=== PATIENT | male | born 1960 | race Caucasian/White ===

== ENCOUNTER 2018-08-18 10:03 | Outpatient (CLI) | payer OTHER ==
--- NOTE | 2018-08-18 12:18 | CT ---
CT ABDOMEN NONCONTRAST CT PELVIS NONCONTRAST: (urolithiasis protocol) DATE: 08/18/2018 TIME: 10:32 a.m. HISTORY: A 57-year-old male with N13.2, ureteral stone with hydronephrosis. Intermittent left flank christy n. COMPARISON: 08/07/2018 TECHNIQUE: IV injection of iodinated contrast media: none Oral contrast media: none FINDINGS: Other than for urolithiasis, the lack of IV and oral contrast limits the evaluation. The approximately 0.4 x 0.3 x 0.2 cm calculus remains lodged in the distal left ureter, less than 1 c m proximal to the left UVJ. There is mild dilation of the left distal ureter. However, the previous ly demonstrates mild dilation of the left renal collecting system has almost resolved. There is curr ently only minimal prominence of the left renal collecting system. Again noted are the two or three punctate calculi in the left renal upper and mid pole, approximately 0.1 cm in size each. There is n o calculus identified in the contralateral right kidney. No right hydronephrosis. IVC filter. With in the limitations of a noncontrast scan, no obvious pathology identified involving the urinary bladd er, the appendix, the abdominal aorta, the right kidney, the pancreas, the adrenals, the liver, or th e spleen. The lung bases are grossly clear. No ascites or pneumoperitoneum. Dynamic compression sc rew in right proximal femur. IMPRESSION: 1. No significant interval change in the position of the approximately 3 or 4 mm calculus in the dis brandi left ureter, very close to the ureterovesical junction. 2. The previously demonstrated mild left hydronephrosis has improved, almost resolved. 3. Mild left nephrolithiasis, consisting of a few punctate 1 mm left renal calculi. 4. Inferior vena cava filter. SANDRA Anderson POS: [facility]
== END 2018-08-18 10:04 | disposition home or self-care (01) ==
LOC: CT 10:03
PROVIDERS: ATTEND Urology
DX: N13.2 Hydronephrosis with renal and ureteral calculous obstruction (principal)
CPT/HCPCS: 74176

== ENCOUNTER 2018-09-21 11:02 | Outpatient (CLI) | payer OTHER ==
[2018-09-21 11:46] LABS: Hemoglobin 15.2 g/dL (14.0-18.0); Mean Corpuscular HGB CONC 34.7 g/dL (32.0-36.0); Mean Corpuscular Hemoglobin 31.5 pg (27.0-31.0); Mean Corpuscular Volume 90.7 fL (78.0-98.0); Platelet Count 218 thou/uL (130-400); RBC Distribution Width 12.4 % (11.5-14.5); Red Blood Cell (RBC) Count 4.83 mill/uL (4.70-6.10); White Blood Cell (WBC) Count 6.4 thou/uL (4.8-10.8)
[2018-09-21 11:51] LABS: Bilirubin Negative (Negative); Blood, Urine Negative (Negative); Clarity CLEAR (Clear); Glucose, Urine (Dipstick) Negative (Negative); Leukocyte Negative (Negative); Nitrite Negative (Negative); Protein, Urine (Dipstick) Negative (Neg-Trace); Specific Gravity, Urine 1.002 (1.002-1.036); Urobilinogen 0.2 mg/dL (0.2-1.0); pH, Urine 6.5 (5.0-9.0)
[2018-09-21 11:53] LABS: Bacteria/HPF None Seen HPF (None Seen); Hyaline Casts/LPF 0-3 HYALINE CAST LPF (0-3 Hyaline); RBC/HPF 0-3 HPF (0-3); Squamous Epithelial None Seen HPF (0-3); WBC/HPF None Seen HPF (0-3)
[2018-09-21 11:54] LABS: INR-International Normal Ratio 0.9; PTT 27.1 SEC (22.9-36.1); Prothrombin Time 12.5 SEC (12.0-14.7)
[2018-09-21 12:33] LABS: Anion Gap 14 mmol/L (10-20); BUN (Urea Nitrogen) 17 mg/dL (8.4-25.7); Calc. Creatinine Clearance 0 mL/min (70-130); Calcium 9.8 mg/dL (7.8-10.44); Carbon Dioxide 23 mmol/L (22-29); Chloride 106 mmol/L (98-107); Estimated GFR-MDRD Greater than 90; Glucose 110 mg/dL (70-105); Potassium 3.9 mmol/L (3.5-5.1); Sodium 139 mmol/L (136-145)
== END 2018-09-21 11:03 | disposition home or self-care (01) ==
LOC: LABBT 11:02
PROVIDERS: ATTEND Urology
DX: Z01.818 Encounter for other preprocedural examination (principal); N13.2 Hydronephrosis with renal and ureteral calculous obstruction; N28.1 Cyst of kidney, acquired
CPT/HCPCS: 80048; 81001; 85027; 85610; 85730; 87086; 93005; 93010

== ENCOUNTER 2018-09-24 06:58 | Day surgery (SDC) | payer OTHER ==
[2018-09-21 11:29] VITALS: BMI 27.9
[2018-09-24] MEDS ORDERED: Levofloxacin 500 mg/D5W 100 ml Premix Bag ONE (07:48)
[2018-09-24] MEDS ORDERED: Fentanyl 100 MCG/2 ML VIAL ONE ×2 (09:30→11:57)
[2018-09-24] MEDS ORDERED: Iothalamate Meglumine 60% 50 ML VIAL FS ONE (09:31)
[2018-09-24] MEDS ORDERED: Midazolam HCl 2 mg/2 ml Vial ONE (09:51)
[2018-09-24] MEDS ORDERED: Phenazopyridine HCl 97.5 MG TABLET ONE ×2 (11:26)
[2018-09-24] MEDS ORDERED: HYDROcodone/Acetaminophen 5/325 mg Tablet ONE (13:24)
[2018-09-24] MEDS ORDERED: Ondansetron PF 4 MG/2 ML Vial ONE (15:20)
[2018-09-24] MEDS ORDERED: PROPOFOL 200 MG/20 ML VIAL ONE (15:20)
[2018-09-24] MEDS ORDERED: Lidocaine 1% PF 5 ML VIAL ONE (15:20)
[2018-09-24] MEDS ORDERED: PHENYLEPHRINE-NS 100 MCG/ML 10 ML SYRINGE ONE (15:20)
--- NOTE | 2018-09-24 17:24 | OP ---
DATE OF PROCEDURE: 09/24/2018 SERVICE: Urology. PREOPERATIVE DIAGNOSIS: Left ureteral stone. POSTOPERATIVE DIAGNOSIS: Left ureteral stone. PROCEDURES PERFORMED: Left ureteroscopy, laser lithotripsy, basket extraction of stone, and placement of a 6 x 26 double-J stent with a string attached. INDICATION FOR PROCEDURE: Mr. Ren is a 57-year-old white male with history of left flank pain. He was diagnosed in August with a left ureteral stone at the ureterovesical junction. Despite Flomax and pain medication, the patient was unable to pass the stone and he is now presenting for definitive stone management. Risks and benefits have been discussed, and he has agreed to proceed forward. DESCRIPTION OF PROCEDURE: After identification of armband and verification of consent, the patient was brought back to the operating room. He underwent general anesthesia with LMA. He was then placed in dorsal lithotomy position and prepped and draped in usual sterile fashion. After appropriate time-out, a lubricated 22-Ukrainian rigid cystoscope was introduced per urethra into the bladder. The bladder was normal, and the prostate was not very obstructive. Attention was turned to the left ureteral orifice, which was cannulated with a 0.035 Sensor wire up to the level of renal pelvis. The cystoscope was then removed after emptying the bladder with leaving the Sensor wire in place as a safety wire, which was affixed to the drapes with hemostat. A semi-rigid ureteroscope was then passed alongside the Sensor wire into the urethra and into bladder and using the assistance of a Bentson wire, we were able to introduce the ureteroscope into the distal ureter, which was somewhat narrowed approximately 1 cm to 2 cm up, the stone was encountered. The Bentson wire was removed and switched out for a 365 micron laser fiber, which was used to fragment the stone to approximately 3 pieces. A 1.9-Ukrainian ZeroTip Nitinol basket was then used to grasp the pieces and bring them out for stone analysis. Final ureteroscopy did not demonstrate any additional stones. The ureteroscope was then withdrawn, and the cystoscope was back-loaded over the Sensor wire back in the bladder. A 6 x 26 double-J stent with a string attached was advanced over the Sensor wire up to the level of the renal pelvis. The wire was then removed leaving a good curl in the renal pelvis and good curl in the bladder. The bladder was then emptied, and the cystoscope was removed. The string was attached to the patient's penis using a small Tegaderm. The patient was then taken out of lithotomy, awakened, and taken to PACU for recovery in stable condition. COMPLICATIONS: None. ESTIMATED BLOOD LOSS: Minimal. RETAINED TUBES AND DRAINS: A 6 x 26 double-J stent on the left. SPECIMEN: Stone for stone analysis. DISPOSITION: The patient will be discharged home. He will be instructed to remove his stent on Friday. He will follow up with me in the following week. Job ID: [id number]
[2018-09-29 10:15] LABS: CA Oxalate Monohydrate 97 % (.); Color Brown (.)
== END 2018-09-24 14:15 | disposition home or self-care (01) ==
LOC: SDC 06:58
PROVIDERS: ATTEND Urology
PROC: 0T778DZ Dilation of Left Ureter with Intraluminal Device, Via Natural or Artificial Opening Endoscopic (ICD-10-PCS; principal; 2018-09-24)
PROC: 0TF78ZZ Fragmentation in Left Ureter, Via Natural or Artificial Opening Endoscopic (ICD-10-PCS; principal; 2018-09-24)
DX: N13.2 Hydronephrosis with renal and ureteral calculous obstruction (principal); N28.1 Cyst of kidney, acquired; I10 Essential (primary) hypertension; F41.9 Anxiety disorder, unspecified; Z88.8 Allergy status to other drugs, medicaments and biological substances; Z88.3 Allergy status to other anti-infective agents; Z79.899 Other long term (current) drug therapy
CPT/HCPCS: 76000; 82365; 88300; 96374; C1769; J1956; J2001; J2250; J2405; J2704; J3010; Q9961

== ENCOUNTER 2019-10-22 11:50 | Outpatient (CLI) | payer OTHER ==
[2019-10-22] MEDS ORDERED: Iopamidol 370 76% 100 ML VIAL ONE (12:02)
--- NOTE | 2019-10-22 13:16 | CT ---
CT of the abdomen with and without contrast INDICATION: Follow-up abnormality seen on recent abdominal ultrasound dated October 04, 2019. History of a complex cyst within the left kidney. COMPARISON: CT of the abdomen and pelvis dated 08/18/[address] the abdomen dated 07/16/2018 and TECHNIQUE: Axial noncontrast CT the abdomen, nephrographic phase axial CT the abdomen and delayed pha se axial CT of the abdomen were obtained. Sagittal and coronal reformats were constructed from the delayed phase imaging series. FINDINGS: Kidneys: There is are two separate 2 mm nonobstructing calculi involving inferior pole the left kidne y. No hydronephrosis is demonstrated. The mildly complex cyst involving the posterior aspect of the left mid kidney is stable to slightly smaller in size measuring 1.8 cm with no internal enhancement. Other tiny subcentimeter cysts are again seen within the right and left kidney. No solid renal lesion is demonstrated. The nodular echogenicity involving the anterior wall of the left mid kidney o n the comparison abdominal ultrasound dated 10/04/2019 was likely related to some lobulation. No solid renal lesion is demonstrated. Liver: No suspicious abnormality. Gallbladder: Normal. Pancreas: Normal. Adrenal glands: Normal. Spleen: Normal. Retroperitoneum: No enlarged lymph nodes. Vasculature: There is stable infrarenal IVC filter. There are mild vascular calcifications seen invol ving the visualized vasculature. Visualized small and large bowel: Visualized unopacified large and small bowel reveal no definite acu te abnormality. Very subtle isabel mesentery is stable. Soft tissues: Normal. Osseous structures: No acute osseous abnormality. There is scattered degenerative and osteoarthritic change present. IMPRESSION: 1. Stable to slightly smaller Bosniak 2 cyst involving the posterior left mid kidney. The abnormality seen on the recent abdominal ultrasound was likely artifactual in nature related to renal cortical lobulation. 2. Left nephrolithiasis and small subcentimeter cysts within the right and left kidney. 3. Stable infrarenal IVC filter.
== END 2019-10-22 11:51 | disposition home or self-care (01) ==
LOC: BICCT 11:50 → CT 11:51
PROVIDERS: ATTEND Urology
DX: N13.2 Hydronephrosis with renal and ureteral calculous obstruction (principal); N28.1 Cyst of kidney, acquired
CPT/HCPCS: 74170